=== PATIENT | male | born 1955 | race Caucasian/White ===

== ENCOUNTER → 2018-06-29 | Outpatient (CLI) | payer OTHER ==
--- NOTE | 2018-06-29 11:55 | Diagnostic Imaging Report ---
Exam: KUB. Clinical History: Calculus of kidney Comparison: None Findings: Frontal view of the abdomen demonstrates a nonobstructive bowel gas pattern with moderate retained stool. Punctate calcifications are seen over the right kidney. No acute bone abnormality. Impression: Punctate calcifications of the right kidney. Signed by: Dr. Addy Park M.D. on 06/29/2018 11:51 AM
== END ==
LOC: RAD 11:02
PROVIDERS: ATTEND Urology
DX: N20.0 Calculus of kidney (principal)
CPT/HCPCS: 74018